=== PATIENT | male | born 1970 | race Caucasian/White ===

== ENCOUNTER 2017-05-29 05:48 | Day surgery (SDC) | payer MEDICAID ==
[~2017-05-29] VITALS: Ht 170.2 cm; Wt 81.6 kg
[2017-05-29] MEDS ORDERED: LACTATED RINGERS 1,000 ML IV SCH (06:30)
[2017-05-29] MEDS ORDERED: AMLO10TA80 PO (07:04)
[2017-05-29] MEDS ORDERED: FLUT1BLS IH (07:04)
[2017-05-29] MEDS ORDERED: ASPI-1159 PO (07:04)
[2017-05-29] MEDS ORDERED: TRIA1TAB92 PO (07:04)
[2017-05-29] MEDS ORDERED: ALBU18HF2 IH (07:04)
[2017-05-29] MEDS ORDERED: PRAV40TA58 PO (07:04)
[2017-05-29] MEDS ORDERED: SKIN ADHESIVE 0.7 GM EA TOP ONE (07:16)
[2017-05-29] MEDS ORDERED: BUPIVACAINE HCL 0.5% (5MG/ML) 50ML ONE (07:16)
[2017-05-29] MEDS ORDERED: BACITRACIN ZINC 15GM TUBE TOP ONE (07:16)
[2017-05-29] MEDS ORDERED: ONDANSETRON HCL 4MG/2ML VIAL IV PRN (08:15)
[2017-05-29] MEDS ORDERED: HYDROMORPHONE HCL/PF 2MG/ML CPJ IV PRN (08:15)
[2017-05-29] MEDS ORDERED: MEPERIDINE HCL/PF 25MG/ML CPJ IV PRN (08:15)
[2017-05-29] MEDS ORDERED: LABETALOL HCL 20MG/4ML CARPUJECT IV PRN (08:15)
== END 2017-05-29 10:50 | disposition home or self-care (01) ==
LOC: OR 05:48
PROVIDERS: ATTEND Urology
DX: N43.41 Spermatocele of epididymis, single (principal); N43.3 Hydrocele, unspecified; I10 Essential (primary) hypertension; F17.210 Nicotine dependence, cigarettes, uncomplicated; E78.00 Pure hypercholesterolemia, unspecified
CPT/HCPCS: 54840; 88302; G0168; J3490; J7120